=== PATIENT | female | born 1985 | race Caucasian/White ===

== ENCOUNTER → 2022-05-22 | Day surgery (SDC) | payer OTHER ==
[~2022-05-22] VITALS: Ht 160 cm; Wt 129.3 kg
[~2022-05-22] MED LIST: IBUPROFEN800 M1 PO; MOTRIN600 MG PO
[2022-05-22 11:57] LABS: HCG (URINE) SCREEN NEGATIVE (NEGATIVE)
== END | disposition home or self-care (01) ==
LOC: FAS 11:38
PROVIDERS: Obstetrics & Gynecology
DX: N93.9 Abnormal uterine and vaginal bleeding, unspecified (principal); G43.909 Migraine, unspecified, not intractable, without status migrainosus; E66.01 Morbid (severe) obesity due to excess calories; Z68.43 Body mass index [BMI] 50.0-59.9, adult; Z88.0 Allergy status to penicillin
CPT/HCPCS: 84703; 93005; J1100; J1885; J2250; J2405; J2704; J3010; J7120; J7298